=== PATIENT | female | born 1930 | race Caucasian/White ===

== ENCOUNTER → 2016-05-06 | Outpatient (CLI) | payer MEDICARE, BC ==
--- NOTE | 2016-05-06 13:29 | RADRPT ---
PROCEDURE: XR Pelvis and left Hip. CLINICAL INDICATION: Hip pain TECHNIQUE: Three views of the pelvis and left hip are available for review. COMPARISON: No prior studies are available for comparison. FINDINGS: There is severe narrowing of the left hip most pronounced at the superolateral aspect with subchondr al sclerosis and prominent apron osteophyte formation. The osseous structures appear demineralized. No radiographic evidence for fracture. There is moderate nonuniform narrowing of the right hip. Bilateral SI joint arthrosis is present. There is bilateral SI joint arthrosis as well. Surgical c lips project over the pelvis. Atherosclerotic aortic calcifications are seen. IMPRESSION: 1. Severe left hip arthrosis with agly-ij-qesl apposition at the superolateral margins. 2. Moderate right hip arthrosis. 3. Decreased bone mineral density without radiographic evidence for fractures. Please note that MRI is more sensitive in evaluating for a nondisplaced fractures in this setting. 4. Advanced degenerative disk disease at the lower lumbar spine. 6. Atherosclerotic vascular calcifications. RPTAT: RR .Patricio Carolina MD, Date Time Electronically viewed and signed by .Patricio Carolina MD, on 05/06/2016 13:29 .d/
== END | disposition home or self-care (01) ==
LOC: HKI 09:50
PROVIDERS: ATTEND Orthopaedic Surgery
DX: M16.12 Unilateral primary osteoarthritis, left hip (principal); M25.552 Pain in left hip
CPT/HCPCS: 73502; G0463

== ENCOUNTER → 2016-05-25 | Outpatient (CLI) | payer MEDICARE, BC | END | disposition home or self-care (01) | LOC: HKI 09:43 | PROVIDERS: ATTEND Orthopaedic Surgery | DX: Z01.818 Encounter for other preprocedural examination (principal); M16.12 Unilateral primary osteoarthritis, left hip; M25.552 Pain in left hip | CPT/HCPCS: 87081; G0463 ==

== ENCOUNTER 2016-05-28 05:42 | Inpatient (IN) | payer MEDICARE, BC ==
[2016-05-27 09:12] VITALS: BMI 21.1
[2016-05-28] VITALS (28 sets, daily range): BP systolic 133–190; BP diastolic 40–99; PULSE 75–99; RESP 10–20; Ht 152.4 cm; Wt 48.5 kg
[~2016-05-28] VITALS: Ht 152.4 cm; Wt 48.5 kg
[~2016-05-28 05:42] MED LIST: BUPIVACAINE LIPOSOME/PF 266 MG/20 ML VIAL INFIL ONE; CEFAZOLIN 2GM/50 ML (PMX) 50 ML X1 BEFORE INCISION IVPB ONE; CELECOXIB 400 MG PO X1 DOSE PO ONE; PAIN COCKTAIL-CEFUROXIME IRR ONE; PREGABALIN 300 MG PO X1 PO ONE; SOD CHLORIDE 0.9% IV ONE; TRANEXAMIC ACID 500 MG in SOD CHLORIDE 0.9% 100 ML IVPB ONE; TRANEXAMIC ACID IV ONE; oxyCODONE (CR) 10 MG TAB [oxyCONTIN] X1 DOSE PO ONE; traMADOL 50 MG TAB X 1 DOSE PO ONE
[2016-05-28] MEDS ORDERED: BACITRACIN 50000 UNITS INJ ONE (06:35)
[2016-05-28] MEDS ORDERED: CEFAZOLIN 1 GM INJ ONE (07:00)
[2016-05-28] MEDS ORDERED: VANCOMYCIN 1 GM INJ ONE (07:01)
[2016-05-28] MEDS ORDERED: HEPARIN 1000 UNITS/ML 10 ML INJ ONE (07:01)
[2016-05-28] MEDS ORDERED: POLYMYXIN B 500000 UNIT INJ ONE (07:01)
[2016-05-28] MEDS ORDERED: FENTAnyl 50 MCG/ML VIAL ONE (07:14)
[2016-05-28] MEDS ORDERED: SODIUM CL BACTERIOSTATIC 30 ML INJ ONE (07:59)
[2016-05-28] MEDS ORDERED: ONDANSETRON 4 MG INJ ONE (08:02)
[2016-05-28] MEDS ORDERED: PROPOFOL 20 ML ONE (08:02)
[2016-05-28] MEDS ORDERED: PROPOFOL 100 ML ONE (08:02)
[2016-05-28] MEDS ORDERED: LIDOCAINE 2% (SDV) 5 ML INJ ONE (08:02)
[2016-05-28] MEDS ORDERED: EPHEDrine SULFATE 50 MG/5 ML SYG ONE (08:02)
[2016-05-28] MEDS ORDERED: FAMOTIDINE 20 MG INJ ONE (08:02)
[2016-05-28] MEDS ORDERED: ROCURONIUM 50 MG INJ ONE (08:02)
[2016-05-28] MEDS ORDERED: DEXAMETHASONE 4 MG/ML 1 ML INJ ONE ×2 (08:02→09:41)
[2016-05-28] MEDS ORDERED: SUCCINYLCHOLINE CHLORIDE 100 MG/5 ML SYG IV ONE (08:02)
[2016-05-28] MEDS ORDERED: NEOSTIGMINE 3 MG/3 ML SYRINGE ONE (08:12)
[2016-05-28] MEDS ORDERED: GLYCOPYRROLATE 0.4 MG INJ ONE (08:12)
[2016-05-28] MEDS ORDERED: HYDROmorphONE (0.2 MG/ML) 10ML SYG IV PRN ×2 (09:30)
[2016-05-28] MEDS ORDERED: ONDANSETRON 4 MG INJ IV PRN ×2 (10:00)
[2016-05-28] MEDS ORDERED: DIPHENHYDRAMINE 25 MG CAP PO PRN (10:00)
[2016-05-28] MEDS ORDERED: NA PHOSPHATE/BIPHOS 133 ML ENEMA PR PRN (10:00)
[2016-05-28] MEDS ORDERED: HYDROmorphONE 1 MG/ML SYG IV PRN (10:00)
[2016-05-28] MEDS ORDERED: BISACODYL 10 MG SUPP PR PRN (10:00)
[2016-05-28] MEDS ORDERED: NACL 0.9% 3 ML SYG IV SCH (10:00)
[2016-05-28] MEDS ORDERED: ASPIRIN (EC) 325 MG TAB PO ONE (10:00)
[2016-05-28] MEDS ORDERED: MAGNESIUM HYDROXIDE 30ML CUP PO PRN (10:00)
[2016-05-28] MEDS ORDERED: oxyCODONE 5 MG TAB PO PRN (10:00)
--- NOTE | 2016-05-28 10:02 | HPN ---
Date/Time of Note Date/Time of Note DATE: 05/28/16 TIME: 10:02 Interval H&P Admission Note Pt. seen H&P reviewed: No system changes No change from H&P by Dr. Ramiro Navarrete on 05/24/16 FRANKLYN VEE MD May 28, 2016 10:02
--- NOTE | 2016-05-28 10:05 | OPR ---
Date/Time of Note Date/Time of Note DATE: 05/28/16 TIME: 10:04 Operative Report Free Text/Dictation Dictation # [id number] Procedure Date: May 28, 2016 Preoperative Diagnosis Left Hip OA Postoperative Diagnosis Same Operation Performed Left Anterior HOMER Surgeon: FRANKLYN VEE MD materials assistant: JESSIE VARELA PA-C Anesthesia: general, spinal Anesthesiologist: VIRIDIANA LOPEZ MD Estimated Blood Loss: 200 - 250 ml's Specimens Femoral Head Tubes/Drains Hemovac x 1 Complications: None Pt Condition Post Procedure: stable Disposition: PACU FRANKLYN VEE MD May 28, 2016 10:05
--- NOTE | 2016-05-28 10:50 | OPR ---
DATE OF OPERATION: 05/28/2016 PREOPERATIVE DIAGNOSIS: Left hip osteoarthritis. POSTOPERATIVE DIAGNOSIS: Left hip osteoarthritis. OPERATION PERFORMED: Left anterior total hip arthroplasty. SURGEON: Franklyn Marcos MD CLINICAL PHARMACY COORDINATOR: TOYA Skelton COMPONENTS USED: DePuy size 50 mm Gription Bahama cup, 50/32 neutral AltrX polyethylene liner, si ze 4 standard Actus stem, 32+1 ceramic head. ANESTHESIA: Spinal plus general endotracheal intubation. ANESTHESIOLOGIST: Dr. Ebony Espinal. ESTIMATED BLOOD LOSS: 250 mL. INTRAVENOUS FLUIDS: Two liters crystalloid. SPECIMENS: Femoral head. DRAINS: Hemovac x1. COMPLICATIONS: None. DISPOSITION: Patient tolerated the procedure well and was taken to the recovery room in stable cond ition. INDICATIONS: The patient is an 85-year-old woman who has had progressive worsening pain in the left hip with radiographic evidence of severe osteoarthritis. She has failed nonsurgical means of treat ment to control her pain including activity modifications, pain medications and ambulatory assist de vices. Despite these measures, she has had worsening pain and I felt she would benefit from a total hip arthroplasty through an anterior approach. The risks, benefits, and alternatives of the procedure were explained in detail to the patient. I e xplained the risks of the surgery to include, but not be limited to: bleeding and possible need for blood transfusion; infection; pain; stiffness; neurovascular injury with possible numbness, weakness , and/or paralysis anywhere from the hip down to the toes; fracture; instability; dislocation; leg l ength inequality; wear and/or loosening of the prosthesis and possible need for future revision; blo od clots; pulmonary embolism; and anesthetic complications such as heart attack, stroke, GI bleed, p neumonia, and/or . Ample time was allowed for the patient to ask questions, all of which were addressed and answered. The patient understood the risks involved and wished to proceed. Informed c onsent was signed prior to the procedure. PROCEDURE: The patient's left hip was initialed with a marking pen in the preoperative area to ident madie the correct operative site. The patient was brought to the operating room and [facility] where a spinal anesthetic was administered. The patient was t hen anesthetized and intubated. A Delgado catheter was placed. Both feet were placed into well-padde d boots, which were then placed into the leg holders of the traction booms. A timeout was performed to confirm that the left side was the correct operative site. The patient was given 2 g of intrave nous Ancef within one hour prior to the procedure. The operative hip was prepped and draped in the usual sterile fashion. A 10 cm oblique incision was made over the anterior aspect of the hip and carried down through subcu taneous tissue and fat with sharp dissection. The tensor fascia juan was incised along the length o f the wound. The tensor fascia muscle was retracted laterally and the sartorius medially. The anter ior circumflex vessels were identified and tied off with 2-0 silk suture and coagulated with the Handle vanna Link technical operations specialist. The rectus femoris was elevated off the anterior capsule and an anterior capsu lectomy performed. A femoral neck osteotomy was made and the head removed from the acetabulum. The acetabulum was denuded of cartilage circumferentially, as was the femoral head. Retractors were pl aced around the acetabulum. The remnants of the labrum and ligamentum teres were excised. I reamed the acetabulum to the medial wall and then went into an anatomic position and increased the reamer size in 2 mm increments until I got a good bite and was down to bleeding subchondral bone. The Bahama cup was opened and impacted into the acetabulum and sat flush circumferentially, gettin g a good bite. C-arm imaging showed it had about 40 to 45 degrees of abduction and 20 degrees of ant eversion. The real liner was opened and impacted into the acetabulum and sat flush circumferentiall y. Attention was turned towards the femur. The operative leg was carefully lowered to the floor with the leg adducted. The foot was then exter bg rotated to approximately 110 degrees. A posteromedial release was performed to optimize expos ure. The femoral hook was placed underneath the proximal femur and the hydraulic lift was then used to elevate the femur up out of the wound. The jennifer cutter osteotome was used to remove the remai korina overhanging greater trochanter. The femur was then broached, going up in one size increments u ntil it sat flush with the neck cut and a stable fit was achieved. The trial neck and head were ass embled and reduced into the acetabulum. Fluoroscopic imaging showed the components to be in good pos ition and the leg lengths and offsets to be equal. At this point, the trial was dislocated and the trial broach removed. The canal was irrigated and d ried. The real stem was opened and impacted into the femur. The trunnion was irrigated and dried, a nd the real femoral head was impacted onto the trunnion, and reduced into the acetabulum. The soft tissues were infiltrated with a mixture of 150 mg of 0.5% Bupivacaine, 8 mg of Duramorph, 3 00 mcg of epinephrine, 30 mg of Toradol, 100 mcg of clonidine, 750 mg of cefuroxime and 86 mL of nor mal saline, followed by an injection of 266 mg of liposomal Bupivacaine. At this point the hip was irrigated with a mixture of betadine/saline and then antibiotic saline with pulsatile lavage. A Hem ovac drain was placed in the deep portion of the wound and brought out the anterolateral thigh. Ther e was good hemostasis. The tensor fascia juan was repaired with a running #1 Vicryl. The deep fat layer was irrigated and closed with 2-0 Stratafix and the subcutaneous layer closed with 3-0 Vicryl and the skin was closed with madyson and then sealed with Dermabond. The drain was secured with 3-0 nylon. The sponge and needle counts were correct at the end of the case. The wound was covered with an occ lusive dressing. The patient was awakened, extubated, and taken to the recovery room in stable cond ition. Dictated By: FRANKLYN LOUIS/SEBAS Conf#: [id number] DID#: [id number]
--- NOTE | 2016-05-28 11:09 | RADRPT ---
PROCEDURE: X-ray fluoroscopy guidance CLINICAL INDICATION: Left hip replacement, fluoroscopic guidance. TECHNIQUE: Fluoroscopic guidance was utilized for an intraoperative procedure. COMPARISON: None available FINDINGS: Fluoroscopic guidance was utilized for and intraoperative procedure. 0.6 minutes of fluoroscopy time was utilized for the procedure. 21 x-ray images were obtained during the procedure in progress. Fin al images demonstrate prosthetic components in appropriate position and alignment. IMPRESSION: X-ray fluoroscopic guidance utilized for intraoperative procedure. Left hip replacement prosthetic components in appropriate position and alignment. Please see procedure note for details. RPTAT: AA .Magan Caro MD, Date Time Electronically viewed and signed by .Magan Caro MD, MD on 05/28/2016 11:09 .P/
--- NOTE | 2016-05-28 11:11 | RADRPT ---
PROCEDURE: XR Pelvis. CLINICAL INDICATION: S post left hip replacement. TECHNIQUE: Single AP view of the pelvis. COMPARISON: May 06, 2016 FINDINGS: Left hip replacement is identified. The prosthetic components are in appropriate position and align ment. Diffuse osteopenia is observed. The osseous structures appear intact. No destructive bony l esions are observed. Moderate to severe narrowing of the right hip joint is seen. Degenerative yumiko nges are noted in the lower lumbar spine. Catheter is identified over the lower pelvis. Surgical cl ips are seen scattered over the pelvis. Vascular calcifications are seen in both thighs. Soft tissu e air over the left hip is procedural in nature. Surgical drain is identified over the left hip. IMPRESSION: Left hip replacement. Prosthetic components are in appropriate position and alignment. Osteopenia. Moderate to severe osteoarthritis of the right hip. Degenerative changes in the lower lumbar spine. Vascular calcifications. RPTAT: AA .Magan Caro MD, Date Time Electronically viewed and signed by .Magan Caro MD, on 05/28/2016 11:10 .P/
[2016-05-28] MEDS: CEFAZOLIN 2 GM/50 ML (PMX) 50 ML IVPB SCH ×2 (11:22→18:47)
[2016-05-28] MEDS: ACETAMINOPHEN 1000MG/100ML IV 100 ML IVPB SCH ×2 (11:23→17:50)
[2016-05-28] MEDS: traMADol 50 MG TAB PO SCH ×2 (11:24→18:47)
[2016-05-28] MEDS ORDERED: hydrALAzine 20 MG INJ ONE (11:45)
--- NOTE | 2016-05-28 12:34 | CONS ---
DATE OF ADMISSION: 05/28/2016 DATE OF CONSULTATION: 05/28/2016 TYPE OF CONSULTATION: Medical. Thank you, Dr. Marcos, for asking me to participate in the medical management of this patient. HISTORY OF PRESENT ILLNESS: This patient is now postop a left total hip arthroplasty. She is in e recovery room. She is awake and alert. The patient's blood pressure has been elevated. She has had blood pressures as high as 154/76. The patient does not have a history of hypertension. She do es not take any antihypertensive medications. The patient is listed as having chronic kidney diseas e; however, her serum creatinine done on preop labs is 1.0, which is in the normal range. PAST MEDICAL HISTORY: Other past medical history is remarkable for left hip arthritis, heart murmur , total abdominal hysterectomy with bilateral salpingo-oophorectomy for endometriosis. OTHER SURGERIES: 1. Total abdominal hysterectomy with bilateral salpingo-oophorectomy. 2. Status post appendectomy. 3. Status post cholecystectomy. ALLERGIES: SHE HAS NO KNOWN DRUG ALLERGIES. SOCIAL HISTORY: Does not take any medication at this time. FAMILY HISTORY: Unremarkable. PHYSICAL EXAMINATION: VITAL SIGNS: At this time, temperature of 97.9, pulse of 78, respirations 15, blood pressure 147/68 , O2 saturation 96% on room air. GENERAL: She is awake and alert. HEENT: Head normocephalic. Eyes: Extraocular muscles intact. Nose and mouth are normal. NECK: Supple. No neck vein distention. LUNGS: Clear to auscultation. HEART: Regular rhythm. No murmurs, gallops or rubs. ABDOMEN: Soft, nontender. EXTREMITIES: No peripheral edema. IMPRESSION: The patient's blood pressure has been elevated this morning after surgery. She is just coming out of anesthesia at this time. She does feel dizzy; however, she has otherwise been stable . She has had no vomiting or nausea. The patient's blood pressure is being monitored and I will tr eat her if her blood pressure remains elevated. I will continue to follow the patient along with yo u. PLAN: 1. The patient to be transferred to the 4th floor, ortho floor when stable. 2. Routine postoperative laboratory tests. 3. We will start antihypertensive medication if needed. 4. I will follow the patient along with you. Dictated By: DENEEN CAMACHO MD ND/SEBAS Conf#: [id number] DID#: [id number]
[2016-05-28] MEDS ORDERED: TRANEXAMIC ACID IVPB ONE ×2 (13:00→16:00)
[2016-05-28] MEDS ORDERED: SOD CHLORIDE 0.9% IVPB ONE ×2 (13:00→16:00)
--- NOTE | 2016-05-28 13:34 | PN ---
Date/Time of Note Date/Time of Note DATE: 05/28/16 TIME: 13:32 Assessment/Plan Lines/Catheters IV Catheter Type (from Nrsg): Peripheral IV Castrejon in Place (from Nrsg): Yes Assessment/Plan Assessment/Plan Stable in PACU, s/p left anterior HOMER -continue antibiotics -pain meds as needed -ASA/SCDs for DVT prophylaxis -OOB with PT -monitor drain -check AM labs -d/c castrejon in AM XR of the left hip shows good alignment with no evidence of fracture or dislocation Subjective 24 Hr Interval Summary Stable in PACU. Moving all extremities. Denies any pain. Exam/Review of Systems Vital Signs Vitals Vital Signs Date Time Temp Pulse Resp B/P Pulse Ox O2 Delivery O2 Flow Rate FiO2 05/28/16 11:09 78 15 147/68 96 Room Air Nasal Cannula 05/28/16 10:49 97.9 05/28/16 10:34 2.0 Exam Free Text/Dictation Hemovac: minimal Dressing dry Incision clean, dry, and intact without redness or drainage 5/5 Quadriceps, Tibialis Anterior, EHL, Gastroc, Soleus, Peroneals Normal sensation Palpable DT/PT, CR <2 sec No distal edema JESSIE VARELA PA-C May 28, 2016 13:34
[2016-05-28] MEDS ORDERED: EXPAREL NOTE (BUPIVICAINE LIPOSOMAL) XX SCH (14:00)
[2016-05-28] MEDS: LACTATED RINGER'S 1,000 ML IV SCH ×2 (14:15→17:45)
[2016-05-28 15:15] LABS: CALCIUM 8.5 mg/dl (8.4-10.2); CREATININE 0.65 mg/dl (0.44-1.00); POTASSIUM 3.8 mmol/L (3.5-5.1)
[2016-05-28 17:02] LABS: HEMATOCRIT 34.2 % (37.0-47.0); HEMOGLOBIN 10.8 g/dl (12.0-16.0)
--- NOTE | 2016-05-28 17:27 | PDOCDIS ---
Discharge Instructions DIAGNOSIS Discharge Diagnosis: s/p left anterior HOMER CONDITION Patient Condition: Good HOME CARE INSTRUCTIONS: Diet Instructions: Regular ACTIVITY: Activity Restrictions: Slowly Increase Activity Rest between Activity Avoid heavy lifting Do not operate Machinery Do not operate Power Tool Avoid Heavy Housework Keep Limb Elevated FOLLOW UP/APPOINTMENTS Appointments follow up in the office on 06/08/16 OTHER ORDERS: Other Orders: S/P Anterior HOMER Physical Therapy: Three times per week at home x 2 weeks Daily in Rehab/SNF WB STATUS: WBAT Strengthening exercises for both upper and un-operated lower extremities. 1. Gait training with front wheeled walker 2. Wide base gait, no pivot turns. 3. Abductor strengthening. 4. Quadriceps and hamstring strengthening. 5. May switch to cane in contra lateral hand 6 weeks after surgery. 6. Physical Therapy can open case if nursing is not available. 7. Ice Packs while at rest to surgical wound for 20 minutes, 3 times/day. 8. Patient requires mobile SCDs to reduce risk of developing DVT following HOMER. Patient will use the mobile SCDs for 30 days postoperatively. Hip Precautions: No posterior hip precautions. Bathing assistance by home health aide twice weekly if Medicare patient. Occupational Therapy: Evaluation for assistive devices and ADL training. Wound Care: Keep incision dry & covered with Tegaderm until first visit with Dr. Marcos Anticoagulation Orders: Enteric Coated Aspirin 325 mg po bid x 6 weeks from date of surgery Follow-up:Call for an appointment with Dr. Marcos in 1 week after discharged from hospital at DME Orders: HUBERT, 3-in-1 Commode, Mobile SCDs JESSIE VARELA PA-C May 28, 2016 17:27
[2016-05-28] MEDS ORDERED: ASPI325T32 PO (17:28)
[2016-05-28] MEDS ORDERED: TRAM50TA2 PO (17:28)
[2016-05-28] MEDS ORDERED: HYDR-906 PO (17:28)
[2016-05-28] MEDS ORDERED: PANT40TA4 PO (17:28)
[2016-05-28] MEDS: PANTOPRAZOLE (EC) 40 MG TAB PO SCH (18:47)
[2016-05-28] MEDS: PREGABALIN 50 MG CAP PO SCH (20:15)
[2016-05-28] MEDS: DOCUSATE SODIUM 100 MG CAP PO SCH (20:15)
[2016-05-29] MEDS: ACETAMINOPHEN 1000MG/100ML IV 100 ML IVPB SCH ×2 (00:09→05:56)
[2016-05-29] MEDS: LACTATED RINGER'S 1,000 ML IV SCH ×6 (01:30→21:30)
[2016-05-29] MEDS: CEFAZOLIN 2 GM/50 ML (PMX) 50 ML IVPB SCH (02:47)
[2016-05-29 04:02] VITALS: BP 183/97; PULSE 92; RESP 18
[2016-05-29 05:28] VITALS: BP 135/78; PULSE 97; RESP 18
[2016-05-29 05:31] LABS: HEMATOCRIT 30.2 % (37.0-47.0); HEMOGLOBIN 9.9 g/dl (12.0-16.0)
[2016-05-29] MEDS: PANTOPRAZOLE (EC) 40 MG TAB PO SCH ×2 (05:56→17:07)
[2016-05-29] MEDS: traMADol 50 MG TAB PO SCH ×4 (05:56→17:08)
[2016-05-29 06:13] LABS: POTASSIUM 4.2 mmol/L (3.5-5.1)
[2016-05-29 06:16] LABS: CREATININE 0.72 mg/dl (0.44-1.00)
[2016-05-29 06:17] LABS: CALCIUM 8.5 mg/dl (8.4-10.2)
--- NOTE | 2016-05-29 06:57 | PREOPHP ---
DATE OF ADMISSION: 05/28/2016 Dr. Ramiro Navarrete MD dictating History and Physicial for Dr. Franklyn Marcos MD CHIEF COMPLAINT: Preoperative evaluation for left total hip replacement to be done by Dr. Franklyn silva at [facility] 05/28/2016 HISTORY OF PRESENT ILLNESS: Briefly, this is an 85-year-old white female with past medical history significant for heart murmur and chronic disease who has noted progressive left hip arthritic sympto ms, which have failed conservative therapies, for which the patient is scheduled for a left anterior approach arthroplasty to be done by Dr. Franklyn Marcos at [facility] 05/28/2016. REVIEW OF SYSTEMS: CONSTITUTIONAL: Denies fever, chills, night sweats, or weight changes. HEENT: No headache, visual changes. NECK: No masses or stiffness. CARDIAC: No anginal chest pain, palpitations, or congestive heart failure symptoms. PULMONARY: No cough, sputum, or wheezing. GASTROINTESTINAL: No nausea, vomiting, diarrhea, constipation, or abdominal pain. EXTREMITIES: No edema. PAST MEDICAL HISTORY: 1. Left hip DJD. See above. 2. Chronic kidney disease, stage III. 3. Heart murmur, not worked up. 4. Status post TALIA-BSO for endometriosis. 5. Status post appendectomy. 6. Status post open cholecystectomy. MEDICATIONS: None. ALLERGIES: THERE ARE NO KNOWN DRUG ALLERGIES. NO PERSONAL OR FAMILY HISTORY OF ANY UNTOWARD ANESTH ETIC REACTIONS. SOCIAL HISTORY: The patient is a smoker, nondrinker. Living in [place]. FAMILY HISTORY: Noncontributory. PHYSICAL EXAMINATION: VITAL SIGNS: Temperature is afebrile, pulse is 75, respirations 16, blood pressure is 130/80, heigh t is 5 foot 3 inches, weight is 108 pounds. GENERAL APPEARANCE: She is a well-developed, well-nourished woman looking younger than stated age i n no acute distress. HEENT: Pupils are equal, round, reactive to light and accommodation. Extraocular movements are int act. Head is normocephalic, atraumatic. Conjunctivae are pink. Sclerae are anicteric. Mucous memb ranes are moist. NECK: Supple. Full range of motion. No lymph nodes palpated. No bruits auscultated. No thyromeg benedict palpated. Jugular venous pressure is normal. CARDIAC: Regular rate and rhythm. S1, S2 are normal. There is no S3 or S4. There is a III/ stevo sh systolic ejection murmur heard best at the right upper sternal border. LUNGS: Clear to auscultation and percussion bilaterally without wheezes or rales auscultated. ABDOMEN: Soft, nontender, nondistended, normoactive bowel sounds. No organomegaly palpated. EXTREMITIES: No edema. Peripheral pulses are 2+ and equal. NEUROLOGIC: Limited, but nonfocal. LABORATORY DATA: INR is 0.96, PTT is 25. White blood cell count 6.6, hemoglobin 12.9, hematocrit 3 8.1, platelets 239. Urinalysis is negative. Sodium 140, potassium 3.8, chloride 103, bicarbonate 2 5, BUN 16, creatinine 1. Creatinine clearance 31, glucose 96. Chest x-ray reveals normal cardiac s ilhouette. Normal lung chung. No acute disease. EKG shows a rate of 74. Normal sinus rhythm, no acute disease. Echocardiogram done shows a heavily calcified aortic valve with mild to moderate ao rtic stenosis with a valve area of 1.2 cm2 and an average gradient of 23 mmHg. ASSESSMENT AND PLAN BY PROBLEM LIST: 1. Left hip degenerative joint disease, which has failed conservative therapy for which the patient appears to be medically optimized to undergo arthroplasty. I will be available should the need shan se for any perioperative medical intervention. 2. Chronic kidney disease, stage III. 3. Mild to moderate aortic stenosis, which is asymptomatic. The patient has been informed of this. This is a new diagnosis for her and she will be followed serially in the office postoperatively. 4. Status post total abdominal hysterectomy, bilateral salpingo-oophorectomy for endometriosis. 5. Status post appendectomy. 6. Status post open cholecystectomy. Dictated By: FRANKLYN LOUIS/NTS Conf#: [id number] DID#: [id number]
[2016-05-29 08:10] VITALS: BP 119/58; RESP 18
[2016-05-29] MEDS: PREGABALIN 50 MG CAP PO SCH ×2 (08:37→22:05)
[2016-05-29] MEDS: DOCUSATE SODIUM 100 MG CAP PO SCH ×2 (08:37→22:05)
[2016-05-29] MEDS: ASPIRIN (EC) 325 MG TAB PO SCH ×2 (08:37→22:05)
--- NOTE | 2016-05-29 08:44 | PN ---
Date/Time of Note Date/Time of Note DATE: 05/29/16 TIME: 08:42 Assessment/Plan Lines/Catheters IV Catheter Type (from Nrsg): Peripheral IV Delgado in Place (from Nrsg): Yes Assessment/Plan Assessment/Plan Stable POD #1, s/p left anterior HOMER -d/c abx -pain meds as needed -ASA/SCDs for DVT prophylaxis -OOB with PT -check AM labs -drain removed -d/c planning. Will plan to go to [facility] upon discharge Subjective 24 Hr Interval Summary No acute overnight events. Denies any significant pain. Did not start PT yet. VSS, afebrile. Will plan to go to [facility] upon discharge. Exam/Review of Systems Vital Signs Vitals Vital Signs Date Time Temp Pulse Resp B/P Pulse Ox O2 Delivery O2 Flow Rate FiO2 05/29/16 08:10 98.0 77 18 119/58 100 05/28/16 14:00 Room Air 05/28/16 10:34 2.0 Intake and Output 05/28/16 05/28/16 05/29/16 15:00 23:00 07:00 Intake Total 2104.9 ml 494.9 ml 120 ml Output Total 410 ml 920 ml 630 ml Balance 1694.9 ml -425.1 ml -510 ml Exam Free Text/Dictation Hemovac: 210cc Dressing dry Incision clean, dry, and intact without redness or drainage 5/5 Quadriceps, Tibialis Anterior, EHL, Gastroc, Soleus, Peroneals Normal sensation Palpable DT/PT, CR <2 sec No distal edema Results Result Diagram: 05/29/16 0422 05/29/16 0422 JESSIE VARELA PA-C May 29, 2016 08:44
--- NOTE | 2016-05-29 10:25 | CONS ---
Date/Time of Note Date/Time of Note DATE: 05/29/16 TIME: 10:23 Assessment/Plan Assessment/Plan Chief Complaint/Hosp Course 1. she is one day postop left total hip arthroplasty. 2. She is overall doing well. 3. Continue current medication and physical therapy. Problems: Consultation Date/Type/Reason Admit Date/Time May 28, 2016 at 05:42 Initial Consult Date 24 HR Interval Summary Free Text/Dictation She is now one day postop a left total hip arthroplasty. She is awake and alert Constitutional: improved, no complaints Exam/Review of Systems Vital Signs Vitals Vital Signs Date Time Temp Pulse Resp B/P Pulse Ox O2 Delivery O2 Flow Rate FiO2 05/29/16 08:10 98.0 77 18 119/58 100 05/28/16 14:00 Room Air 05/28/16 10:34 2.0 Intake and Output 05/28/16 05/28/16 05/29/16 14:59 22:59 06:59 Intake Total 2104.9 ml 494.9 ml 120 ml Output Total 410 ml 920 ml 630 ml Balance 1694.9 ml -425.1 ml -510 ml Exam Constitutional: alert, oriented, well developed Respiratory: clear to auscultation, normal air movement Cardiovascular: regular rate and rhythm Musculoskeletal: nl extremities to inspection Results Result Diagram: 05/29/16 0422 05/29/16 0422 Results 24 hrs Laboratory Tests Test 05/28/16 14:50 05/29/16 04:22 Hemoglobin 10.8 L 9.9 L Hematocrit 34.2 L 30.2 L Sodium Level 133 L 135 Potassium Level 3.8 4.2 Chloride Level 105 101 Carbon Dioxide Level 24 26 Anion Gap 8 12 Blood Urea Nitrogen 13 14 Creatinine 0.65 0.72 Glucose Level 204 109 # Calcium Level 8.5 8.5 Medications Medications Current Medications Lactated Ringer's (Lr) 1,000 ml @ 100 mls/hr Q10H IV ; Start 05/28/16 at 05:30 Miscellaneous Information 1 ea 1 ea NOTE XX ; Start 05/28/16 at 14:00; Stop at 13:59 Lactated Ringer's 1,000 ml @ 125 mls/hr Q8H IV Last administered on 05/29/16t 01:31; Admin Dose 125 MLS/HR; Start 05/28/16 at 09:45 Acetaminophen (Ofirmev 1000mg/ 100ml Iv) 100 ml @ 400 mls/hr Q6 IVPB Last administered on 05/29/16 05:56; Admin Dose 400 MLS/HR; Start 05/28/16 at 12:00 ; Stop 05/29/16 at 11:59 Tramadol HCl (Ultram) 50 mg Q6 PO Last administered on 05/29/16 05:56; Admin Dose 50 MG; Start 05/28/16 at 12:00; Stop 05/31/16 at 11:59 Oxycodone HCl (Roxicodone) 5 mg Q4H PRN PO PAIN LEVEL 1-3; Start 05/28/16 at 10 :00 Oxycodone HCl (Roxicodone) 10 mg Q4H PRN PO PAIN LEVEL 4-7; Start 05/28/16 at 10:00 Hydromorphone HCl (Dilaudid) 1 mg Q3H PRN IV PAIN LEVEL 8-10; Start 05/28/16 at 10:00 Ondansetron HCl (Zofran Inj) 4 mg Q6H PRN IV NAUSEA AND/OR VOMITING Last administered on 05/28/16 14:17; Admin Dose 4 MG; Start 05/28/16 at 10:00 Bisacodyl (Dulcolax Supp) 10 mg Q12H PRN [place] CONSTIPATION; Start 05/28/16 at 10: 00 Magnesium Hydroxide (Milk Of Mag) 30 ml BID PRN PO CONSTIPATION; Start at 10:00 Sodium Biphosphate/ Sodium Phosphate (Fleet Enema) 133 ml DAILY PRN [place] CONSTIPATION; Start 05/28/16 at 10:00 Docusate Sodium (Colace) 100 mg BID PO Last administered on 05/29/16 08:37; Admin Dose 100 MG; Start 05/28/16 at 21:00 Diphenhydramine HCl (Benadryl) 25 mg Q6H PRN PO PRURITUS; Start 05/28/16 at 10: 00 Aspirin (Ecotrin) 325 mg BID PO Last administered on 05/29/16 08:37; Admin Dose 325 MG; Start 05/29/16 at 09:00 Pregabalin (Lyrica) 50 mg BID PO Last administered on 4/21/17at 08:37; Admin Dose 50 MG; Start 05/28/16 at 21:00 Pantoprazole (Protonix Tab) 40 mg BID@06,18 PO Last administered on 05/29/16 05:56; Admin Dose 40 MG; Start 05/28/16 at 18:00 Clonidine (Catapres) 0.1 mg Q6H PRN PO ELEVATED BLOOD PRESSURE Last administered on 05/29/16 03:59; Admin Dose 0.1 MG; Start 05/28/16 at 12:00 DENEEN CAMACHO MD May 29, 2016 10:25
[2016-05-29 11:06] LABS: ADD UMIC NO; URINE BILIRUBIN (Dip) NEGATIVE (NEGATIVE); URINE BLOOD (Dip) NEGATIVE (NEGATIVE); URINE COLOR LT. YELLOW (YELLOW); URINE GLUCOSE (Dip) NEGATIVE (NEGATIVE); URINE KETONES (Dip) NEGATIVE (NEGATIVE); URINE LEUKOCYTE ESTERASE (Dip) NEGATIVE (NEGATIVE); URINE NITRITE (Dip) NEGATIVE (NEGATIVE); URINE TOTAL PROTEIN (Dip) NEGATIVE (NEGATIVE); URINE UROBILINOGEN (Dip) 0.2 E.U./dL (0.1-1.0)
[2016-05-29 20:14] VITALS: BP 148/84; RESP 17
[2016-05-30] MEDS: traMADol 50 MG TAB PO SCH ×4 (00:13→17:37)
[2016-05-30] MEDS: LACTATED RINGER'S 1,000 ML IV SCH ×5 (01:45→16:34)
[2016-05-30 05:44] LABS: HEMATOCRIT 29.6 % (37.0-47.0); HEMOGLOBIN 9.5 g/dl (12.0-16.0)
[2016-05-30 06:11] LABS: POTASSIUM 3.9 mmol/L (3.5-5.1)
[2016-05-30 06:14] LABS: CREATININE 0.78 mg/dl (0.44-1.00)
[2016-05-30 06:15] LABS: CALCIUM 8.4 mg/dl (8.4-10.2)
[2016-05-30] MEDS: PANTOPRAZOLE (EC) 40 MG TAB PO SCH ×2 (06:17→17:37)
[2016-05-30 07:45] VITALS: BP 153/72; RESP 15
[2016-05-30] MEDS: DOCUSATE SODIUM 100 MG CAP PO SCH ×2 (08:49→21:35)
[2016-05-30] MEDS: ASPIRIN (EC) 325 MG TAB PO SCH ×2 (08:50→21:34)
[2016-05-30] MEDS: PREGABALIN 50 MG CAP PO SCH ×2 (08:50→21:36)
[2016-05-30] MEDS: oxyCODONE 5 MG TAB PO PRN (08:59)
[2016-05-30] MEDS: POLYETHYLENE GLYCOL 17 GM PACKET PO PRN (12:08)
--- NOTE | 2016-05-30 12:15 | CONS ---
Date/Time of Note Date/Time of Note DATE: 05/30/16 TIME: 12:09 Consult Date/Type/Reason Admit Date/Time May 28, 2016 at 05:42 Initial Consult Date 05/28/2016 Type of Consultation: Medicine Reason for Consultation HTN Subjective Patient report pain is improved today, endorses better mobility overall. Has been constipated. Was cold last night but no fevers or chills. Denies chest pain , sob, cough, abdominal pain, dysuria, nausea, vomiting, diarrhea Objective Vital Signs Date Time Temp Pulse Resp B/P Pulse Ox O2 Delivery O2 Flow Rate FiO2 05/30/16 07:45 98.0 79 15 153/72 100 05/28/16 14:00 Room Air 05/28/16 10:34 2.0 Intake and Output 05/29/16 05/29/16 05/30/16 15:00 23:00 07:00 Intake Total 860 ml 960 ml Output Total 600 ml 1000 ml Balance 260 ml -40 ml Exam Gen-NAD, alert and oriented HEENT- OP clear, mmm, no scleral icterus CV-rrr, nml s1/s2, EMLER most pronounced at base Pulm-CTAB, no w/r/r Abd-soft, nt/ND Ext-no c/c/e Results/Medications Result Diagram: 05/30/16 04505/30/16 0450 Results 24 hrs Laboratory Tests Test 05/30/16 04:50 Hemoglobin 9.5 L Hematocrit 29.6 L Sodium Level 139 Potassium Level 3.9 Chloride Level 104 Carbon Dioxide Level 28 Anion Gap 11 Blood Urea Nitrogen 19 Creatinine 0.78 Glucose Level 80 Calcium Level 8.4 Medications Current Medications Lactated Ringer's (Lr) 1,000 ml @ 100 mls/hr Q10H IV ; Start 05/28/16 at 05:30 Miscellaneous Information 1 ea 1 ea NOTE XX ; Start 05/28/16 at 14:00; Stop at 13:59 Lactated Ringer's (Lr) 1,000 ml @ 125 mls/hr Q8H IV Last administered on 01:31; Admin Dose 125 MLS/HR; Start 05/28/16 at 09:45 Tramadol HCl (Ultram) 50 mg Q6 PO Last administered on 05/30/16 06:17; Admin Dose 50 MG; Start 05/28/16 at 12:00; Stop 05/31/16 at 11:59 Oxycodone HCl (Roxicodone) 5 mg Q4H PRN PO PAIN LEVEL 1-3 Last administered on 05/30/16 08:59; Admin Dose 5 MG; Start 05/28/16 at 10:00 Oxycodone HCl (Roxicodone) 10 mg Q4H PRN PO PAIN LEVEL 4-7; Start 05/28/16 at 10:00 Hydromorphone HCl (Dilaudid) 1 mg Q3H PRN IV PAIN LEVEL 8-10; Start 05/28/16 at 10:00 Ondansetron HCl (Zofran Inj) 4 mg Q6H PRN IV NAUSEA AND/OR VOMITING Last administered on 05/28/16 14:17; Admin Dose 4 MG; Start 05/28/16 at 10:00 Bisacodyl (Dulcolax Supp) 10 mg Q12H PRN [place] CONSTIPATION; Start 05/28/16 at 10: 00 Magnesium Hydroxide (Milk Of Mag) 30 ml BID PRN PO CONSTIPATION; Start at 10:00 Sodium Biphosphate/ Sodium Phosphate (Fleet Enema) 133 ml DAILY PRN [place] CONSTIPATION; Start 05/28/16 at 10:00 Docusate Sodium (Colace) 100 mg BID PO Last administered on 05/30/16 08:49; Admin Dose 100 MG; Start 05/28/16 at 21:00 Diphenhydramine HCl (Benadryl) 25 mg Q6H PRN PO PRURITUS; Start 05/28/16 at 10: 00 Aspirin (Ecotrin) 325 mg BID PO Last administered on 05/30/16 08:50; Admin Dose 325 MG; Start 05/29/16 at 09:00 Pregabalin (Lyrica) 50 mg BID PO Last administered on 05/30/16 08:50; Admin Dose 50 MG; Start 05/28/16 at 21:00 Pantoprazole (Protonix Tab) 40 mg BID@18 PO Last administered on 05/30/16 06:17; Admin Dose 40 MG; Start 05/28/16 at 18:00 Clonidine (Catapres) 0.1 mg Q6H PRN PO ELEVATED BLOOD PRESSURE Last administered on 4/21/17at 03:59; Admin Dose 0.1 MG; Start 05/28/16 at 12:00 Polyethylene Glycol (Miralax) 17 gm DAILY PRN PO CONSTIPATION; Start 05/30/16 at 12:00 Assessment/Plan Chief Complaint/Hosp Course Generally healthy 85 y/o female pmh clinically insignificant cardiac murmur sp L hip replacement 05/28, course c/b hypertensive episodes. Problems: Additional Assessment/Plan Ortho #s/p LHA -ASA/SCD -PT -judicious pain management GI #constipation -will add miralax to regimen, one dose now Cards #HTN-controlled now -clonidine prn dispo-if continues to improve can likely be discharged to [facility] tomorrow ALEX RICHARDS MD May 30, 2016 12:15
--- NOTE | 2016-05-30 17:58 | PN ---
DATE: 05/30/2016 The patient is being seen for Dr. Marcos. The patient is now postoperative day #3. She is comforta ble, slightly drowsy from her medication. Temperature is 98. Hemoglobin is 9.5. The patient's polo ssings were changed. It was clean and healing well, no sign of infection. The patient will be tra nsferred to the [facility] tomorrow. Dictated By: YVONNE ALBRIGHT/SEBAS Conf#: [id number] DID#: [id number]
[2016-05-30 20:01] VITALS: BP 134/63; RESP 18
[2016-05-31] MEDS: LACTATED RINGER'S 1,000 ML IV SCH ×3 (01:45→09:23)
[2016-05-31] MEDS: oxyCODONE 5 MG TAB PO PRN ×2 (03:06→13:53)
[2016-05-31] MEDS: PANTOPRAZOLE (EC) 40 MG TAB PO SCH (05:39)
[2016-05-31] MEDS: traMADol 50 MG TAB PO SCH ×2 (05:39)
[2016-05-31 06:50] LABS: HEMATOCRIT 30.3 % (37.0-47.0); HEMOGLOBIN 9.4 g/dl (12.0-16.0)
[2016-05-31 07:00] LABS: CALCIUM 8.3 mg/dl (8.4-10.2); CREATININE 0.76 mg/dl (0.44-1.00); POTASSIUM 4.1 mmol/L (3.5-5.1)
[2016-05-31 08:20] VITALS: BP 136/73; RESP 18
[2016-05-31] MEDS: DOCUSATE SODIUM 100 MG CAP PO SCH (09:21)
[2016-05-31] MEDS: ASPIRIN (EC) 325 MG TAB PO SCH (09:21)
[2016-05-31] MEDS: PREGABALIN 50 MG CAP PO SCH (09:21)
--- NOTE | 2016-05-31 11:36 | CONS ---
Date/Time of Note Date/Time of Note DATE: 05/31/16 TIME: 11:31 Consult Date/Type/Reason Admit Date/Time May 28, 2016 at 05:42 Initial Consult Date 05/28/2016 Type of Consultation: Medicine Reason for Consultation HTN Subjective Patient doing well this am. Denies fevers, chills, nausea, vomiting, diarrhea. Abdominal pain. Still has not had BM. Objective Vital Signs Date Time Temp Pulse Resp B/P Pulse Ox O2 Delivery O2 Flow Rate FiO2 05/31/16 08:20 98.2 101 18 136/73 99 05/28/16 14:00 Room Air 05/28/16 10:34 2.0 Intake and Output 05/30/16 05/30/16 05/31/16 15:00 23:00 07:00 Intake Total 920 ml Output Total 900 ml Balance 20 ml Exam Gen-NAD, alert and oriented HEENT- OP clear, mmm, no scleral icterus CV-rrr, nml s1/s2, ELMER most pronounced at base Pulm-CTAB, no w/r/r Abd-soft, nt/ND Ext-no c/c/e Results/Medications Result Diagram: 05/31/1652105/31/16521 Results 24 hrs Laboratory Tests Test 05/31/16 05:22 Hemoglobin 9.4 L Hematocrit 30.3 L Sodium Level 135 Potassium Level 4.1 Chloride Level 105 Carbon Dioxide Level 28 Anion Gap 6 L Blood Urea Nitrogen 18 Creatinine 0.76 Glucose Level 94 Calcium Level 8.3 L Medications Current Medications Lactated Ringer's (Lr) 1,000 ml @ 100 mls/hr Q10H IV ; Start 05/28/16 at 05:30 Miscellaneous Information 1 ea 1 ea NOTE XX ; Start 05/28/16 at 14:00; Stop at 13:59 Lactated Ringer's (Lr) 1,000 ml @ 125 mls/hr Q8H IV Last administered on 01:31; Admin Dose 125 MLS/HR; Start 05/28/16 at 09:45 Tramadol HCl (Ultram) 50 mg Q6 PO Last administered on 05/31/16 05:39; Admin Dose 50 MG; Start 05/28/16 at 12:00; Stop 05/31/16 at 11:59 Oxycodone HCl (Roxicodone) 5 mg Q4H PRN PO PAIN LEVEL 1-3 Last administered on 05/31/16 03:06; Admin Dose 5 MG; Start 05/28/16 at 10:00 Oxycodone HCl (Roxicodone) 10 mg Q4H PRN PO PAIN LEVEL 4-7; Start 05/28/16 at 10:00 Hydromorphone HCl (Dilaudid) 1 mg Q3H PRN IV PAIN LEVEL 8-10; Start 05/28/16 at 10:00 Ondansetron HCl (Zofran Inj) 4 mg Q6H PRN IV NAUSEA AND/OR VOMITING Last administered on 05/28/16 14:17; Admin Dose 4 MG; Start 05/28/16 at 10:00 Bisacodyl (Dulcolax Supp) 10 mg Q12H PRN [place] CONSTIPATION; Start 05/28/16 at 10: 00 Magnesium Hydroxide (Milk Of Mag) 30 ml BID PRN PO CONSTIPATION; Start at 10:00 Sodium Biphosphate/ Sodium Phosphate (Fleet Enema) 133 ml DAILY PRN [place] CONSTIPATION; Start 05/28/16 at 10:00 Docusate Sodium (Colace) 100 mg BID PO Last administered on 05/31/16 09:21; Admin Dose 100 MG; Start 05/28/16 at 21:00 Diphenhydramine HCl (Benadryl) 25 mg Q6H PRN PO PRURITUS; Start 05/28/16 at 10: 00 Aspirin (Ecotrin) 325 mg BID PO Last administered on 05/31/16 09:21; Admin Dose 325 MG; Start 05/29/16 at 09:00 Pregabalin (Lyrica) 50 mg BID PO Last administered on 05/31/16 09:21; Admin Dose 50 MG; Start 05/28/16 at 21:00 Pantoprazole (Protonix Tab) 40 mg BID@,18 PO Last administered on 05/31/16 05:39; Admin Dose 40 MG; Start 05/28/16 at 18:00 Clonidine (Catapres) 0.1 mg Q6H PRN PO ELEVATED BLOOD PRESSURE Last administered on 05/29/16 03:59; Admin Dose 0.1 MG; Start 05/28/16 at 12:00 Polyethylene Glycol (Miralax) 17 gm DAILY PRN PO CONSTIPATION Last administered on 05/30/16t 12:08; Admin Dose 17 GM; Start 05/30/16 at 12:00 Assessment/Plan Chief Complaint/Hosp Course Generally healthy 85 y/o female pmh clinically insignificant cardiac murmur sp L hip replacement 05/28, course c/b hypertensive episodes. Problems: Additional Assessment/Plan Ortho #s/p LHA -ASA/SCD -PT -judicious pain management GI #constipation -continue bowel regimen, miralax today as well Cards #HTN-controlled now -clonidine prn dispo-medically cleared for discharge to [facility] today. Should get some miralax before she leaves. ALEX RICHARDS MD May 31, 2016 11:35
--- NOTE | 2016-05-31 14:46 | DS ---
DATE OF ADMISSION: 05/28/2016 DATE OF DISCHARGE: 05/31/2016 CONDITION UPON DISCHARGE: Stable. ADMITTING DIAGNOSIS: Left hip osteoarthritis. DISCHARGE DIAGNOSIS: Status post left anterior total hip arthroplasty. PROCEDURE PERFORMED: Left anterior total hip arthroplasty. HOSPITAL COURSE: An 85-year-old female who was seen in the clinic initially complaining of left hip and groin pain. Radiographs were obtained and demonstrated advanced osteoarthritis of the left hip and it was thought she would benefit from a left anterior total hip arthroplasty. On 05/28/2016 the patient was admitted and taken to the operating room where she underwent a left anterior total hip arthroplasty. There were no intraoperative complications. The patient tolerated the procedure well. She was taken to the recovery room in stable condition. Pain was well controlled with oral pain medication. She was started on aspirin and SCDs for DVT prophylaxis. She remained hemodynamically stable and neurovascularly intact throughout her hospital stay. She began physical therapy in the hospital. She continued to make progress. She was deemed stable for transfer to the [facility] on postoperative day #3. Prior to transfer, the incision was inspected and noted to be clean, dry and intact. Dressing changes were done prior to patient going to the [facility]. LABORATORY ANALYSIS: Hemoglobin 9.4, hematocrit 30.3. Chemistry panel was within normal limits. DISCHARGE MEDICATIONS: 1. Aspirin 325 mg 2. [place] 5/325 mg. 3. Protonix 40 mg. 4. Tramadol 50 mg. Additionally, the patient is to resume all of her normal home medications. DISCHARGE INSTRUCTIONS: The patient will be transferred to the [facility] in stable condition. She is to resume a normal diet. Activity includes weightbearing as tolerated on the left lower extremity. She will begin physical therapy with home health. She will be discharged home on the medications noted above and is to resume all of her normal home medications. The patient is to call the office or go to the emergency room for any concerns including increased redness, swelling, drainage, fever or any concern regarding the operation or site of incision. Patient is to follow up in the office on 06/08/2016. Dictated By: JESSIE GAYTAN/SEBAS Conf#: [id number] DID#: [id number] JESSIE
[2016-05-31] MEDS: POLYETHYLENE GLYCOL 17 GM PACKET PO PRN (16:13)
--- NOTE | 2016-05-31 16:23 | HP ---
DATE OF ADMISSION: 05/28/2016 Seen on 05/29/2016, postoperative day #3. The patient is seen for Dr. Marcos as weekend coverage. The patient is doing extremely well. She has minimal pain. The wound is clean and healing well. H emoglobin is 9.4. Temperature is 98.2. Dressings were changed. The patient will be transferred [facility] the [facility] today. Dictated By: YVONNE ALBRIGHT/SEBAS Conf#: [id number] DID#: [id number]
== END 2016-05-31 17:15 | DRG 470 ==
LOC: REC 05:42 → MS1 11:30
PROVIDERS: ADMIT Orthopaedic Surgery; ATTEND Orthopaedic Surgery
PROC: 0SRB04Z Replacement of Left Hip Joint with Ceramic on Polyethylene Synthetic Substitute, Open Approach (ICD-10-PCS; principal; 2016-05-28 07:00)
DX: M16.12 Unilateral primary osteoarthritis, left hip (principal); I10 Essential (primary) hypertension; Z90.710 Acquired absence of both cervix and uterus; Z90.49 Acquired absence of other specified parts of digestive tract
CPT/HCPCS: 72170; 73530; 80048; 81003; 85014; 85018; 86850; 86900; 86901; 86920; 87081; 87086; 88304; 88311; 97110; 97116; 97162; 97530; C1753; C1776; C9290; J0131; J0171; J0330; J0360; J0690; J0697; J0735; J1100; J1644; J1885; J2274; J2405; J2710; J3010; J3370; J7120

== ENCOUNTER → 2016-06-12 | Outpatient (CLI) | payer MEDICARE, BC ==
[~2016-06-12] MED LIST changes: +ASPI325T32 PO; -BUPIVACAINE LIPOSOME/PF 266 MG/20 ML VIAL INFIL ONE; -CEFAZOLIN 2GM/50 ML (PMX) 50 ML X1 BEFORE INCISION IVPB ONE; -CELECOXIB 400 MG PO X1 DOSE PO ONE; +HYDR-906 PO; -PAIN COCKTAIL-CEFUROXIME IRR ONE; +PANT40TA4 PO; -PREGABALIN 300 MG PO X1 PO ONE; -SOD CHLORIDE 0.9% IV ONE; +TRAM50TA2 PO; -TRANEXAMIC ACID 500 MG in SOD CHLORIDE 0.9% 100 ML IVPB ONE; -TRANEXAMIC ACID IV ONE; -oxyCODONE (CR) 10 MG TAB [oxyCONTIN] X1 DOSE PO ONE; -traMADOL 50 MG TAB X 1 DOSE PO ONE
--- NOTE | 2016-06-12 12:42 | HKNOTE ---
DATE OF SERVICE: 06/12/2016 INTERVAL HISTORY: The patient presents today for her first postoperative evaluation on her left hip . She is now 2 weeks status post left anterior total hip arthroplasty. She is at the [facility] a nd doing well overall. She denies any significant pain. She is doing physical therapy on a daily b asis at the [facility]. She did develop a mild bedsore secondary to being in bed too long, but has been more active since the incident occurred. She denies any fevers or chills. She denies any pus or drainage. She is here today with her son and friend for evaluation. PHYSICAL EXAMINATION: Today, she is alert and oriented x4 and in no acute distress. She is ambulat ory with a front-wheel walker. Examination of the incision demonstrates it to be clean, dry and int act. [place] are in place. There is no erythema, warmth or significant soft tissue swelling. She has no pain with passive range of motion of the left hip. She does have some mild soft tissue swell ing distally. Homans sign is negative. Compartments are soft. She is neurovascularly intact dista lly. IMAGING: X-rays of the left hip done at an outside facility were reviewed by me today. They demons trate anatomic alignment with no fracture or dislocation identified. ASSESSMENT: Two weeks status post left anterior total hip arthroplasty, doing well. PLAN: The madyson were removed today and Steri-Strips were applied. She is to continue physical th erapy at the [facility]. She can begin discharge planning as the patient seems to be doing very we ll. She should continue aspirin 325 mg twice daily for DVT prophylaxis. Additionally, given the mi ld soft tissue swelling of her left lower extremity, we will have a Doppler done at the [facility] to rule out DVT, although likelihood is low at this point. We will see her back in 4 weeks for repe at evaluation. The patient is to call the office in the meantime if she has any concerns. Dictated By: JESSIE PITTMAN for FRANKLYN GAYTAN/SEBAS Conf#: [id number] DID#: [id number]
== END | disposition home or self-care (01) ==
LOC: HKI 10:33
PROVIDERS: ATTEND Orthopaedic Surgery
DX: Z47.1 Aftercare following joint replacement surgery (principal); Z96.642 Presence of left artificial hip joint

== ENCOUNTER → 2016-07-10 | Outpatient (CLI) | payer MEDICARE, BC ==
--- NOTE | 2016-07-10 12:01 | RADRPT ---
PROCEDURE: XR pelvis/left hip. CLINICAL INDICATION: Hip pain TECHNIQUE: AP pelvis/lateral left hip view performed. COMPARISON: 05/28/2016 FINDINGS: There is a left total hip replacement. There is no evidence of loosening of the prosthesis. No hardw are failure identified. There is moderate right hip osteoarthrosis. This is associated with joint space narrowing, subchondr al sclerosis, subchondral cyst formation and osteophytosis. There is diffuse osteopenia. No fractu res or osseous lesions are identified. The soft tissues are unremarkable. There are multiple surgic al clips in the pelvis. There is arterial vascular calcification. IMPRESSION: Left total hip replacement. Moderate right hip osteoarthrosis. Diffuse osteopenia. RPTAT: HGDB .James Cook MD, MD Date Time Electronically viewed and signed by .James Cook MD, on 07/10/2016 12:01 .B/
== END | disposition home or self-care (01) ==
LOC: HKI 10:11
PROVIDERS: ATTEND Orthopaedic Surgery
DX: Z47.1 Aftercare following joint replacement surgery (principal); M16.12 Unilateral primary osteoarthritis, left hip; Z96.642 Presence of left artificial hip joint
CPT/HCPCS: 73502

== ENCOUNTER → 2016-09-16 | Outpatient (CLI) | payer MEDICARE, BC ==
--- NOTE | 2016-09-16 17:05 | RADRPT ---
PROCEDURE: XR Left Hip and pelvis. CLINICAL INDICATION: Left hip pain. Pelvic pain. Postop. TECHNIQUE: Three views. Frontal pelvis. Frontal and lateral left hip. COMPARISON: 07/10/2016. FINDINGS: There is no fracture or dislocation. Surgical clips are present in the pelvis. Vascular calcifications are present consistent with ather osclerosis. There is a left hip total arthroplasty which appears satisfactory. There are moderate degenerative changes of the right hip with joint space narrowing and osteophytes. There is no lytic or blastic lesion. There are degenerative changes of the lower lumbar spine. IMPRESSION: 1. Satisfactory postoperative appearance of the left hip. 2. Moderate degenerative changes of the right hip. 3. Degenerative changes of the lower lumbar spine. 4. Prior pelvic surgery. RPTAT: QQ .Colby Lay MD, Date Time Electronically viewed and signed by .Colby Lay MD, on 09/16/2016 17:05 .R/
== END | disposition home or self-care (01) ==
LOC: HKI 09:45
PROVIDERS: ATTEND Orthopaedic Surgery
DX: Z47.89 Encounter for other orthopedic aftercare (principal); Z96.642 Presence of left artificial hip joint
CPT/HCPCS: 73502; G0463